=== PATIENT | female | born 1945 | race Caucasian/White ===

== ENCOUNTER → 2016-09-30 | Outpatient (CLI) | payer MEDICARE, OTHER ==
[~2016-09-30] MED LIST: ALEN70SO PO; ASPI81TA85 PO; CALTTAB11 PO; FLUO20CA8 PO; FOSI10TA10 PO; LUTE25CA PO; OMEP20CA3 PO; PRED20TA PO; TIMO5OPG OD; TRAV04OPD OD; TRAZ50TA4 PO; VITA10006 PO; VITATAB74 PO
[2016-09-30 11:23] LABS: BASO % 0.2 % (0.0-1.0); EOS # 0.1 K/mm3 (0.0-0.50); EOS % 1.6 % (0.0-3.0); LARGE UNSTAINED CELL # 0.2 K/mm3 (0.0-0.4); LARGE UNSTAINED CELL % 2.2 % (0.0-4.0); LYMPH # 1.8 K/mm3 (1.5-4.5); LYMPH % 25.6 % (24.0-44.0); MEAN CORPUSCULAR HEMOGLOBIN 30.2 pg (27.0-33.0); MEAN CORPUSCULAR HGB CONC 32.3 g/dl (32.0-36.5); MEAN CORPUSCULAR VOLUME 93.6 fl (80.0-96.0); MONO # 0.5 K/mm3 (0.0-0.8); MONO % 6.9 % (0.0-5.0); NEUTROPHILS # 4.4 K/mm3 (1.8-7.7); NEUTROPHILS % 63.4 % (36.0-66.0); PLATELET COUNT, AUTOMATED 213 k/mm3 (150-450); RED CELL DISTRIBUTION WIDTH 13.3 % (11.5-14.5); WHITE BLOOD COUNT 6.9 K/mm3 (4.0-10.0)
[2016-09-30 11:32] LABS: ALBUMIN 3.7 GM/DL (3.2-5.2); ALBUMIN/GLOBULIN RATIO 1.19 (1.00-1.93); ALKALINE PHOSPHATASE 48 U/L (45-117); ALT/SGPT 20 U/L (12-78); ANION GAP 10 MEQ/L (8-16); AST/SGOT 10 U/L (15-37); BILIRUBIN,TOTAL 0.6 MG/DL (0.2-1.0); BLOOD UREA NITROGEN 15 MG/DL (7-18); CARBON DIOXIDE LEVEL 30 MEQ/L (21-32); CHLORIDE LEVEL 106 MEQ/L (98-107); CREATININE FOR GFR 0.84 MG/DL (0.55-1.02); GLOMERULAR FILTRATION RATE > 60.0 (>39); GLUCOSE, FASTING 89 MG/DL (83-110); POTASSIUM SERUM 4.3 MEQ/L (3.5-5.1); SODIUM LEVEL 146 MEQ/L (136-145); TOTAL PROTEIN 6.8 GM/DL (6.4-8.2)
[2016-10-01 10:46] LABS: ALBUMIN 3.81 GM/DL (3.29-5.55)
== END ==
LOC: M LRY 08:22
PROVIDERS: ATTEND Internal Medicine Medical Oncology
DX: R82.90 Unspecified abnormal findings in urine (principal)

== ENCOUNTER → 2016-10-30 | Outpatient (CLI) | payer MEDICARE, OTHER ==
--- NOTE | 2016-10-30 09:36 | REPMRS ---
Patient History The patient states she has not had a clinical breast exam in over a year. Patient is postmenopausal and has history of other cancer at age 66. No known family history of cancer. Digital Woman Screen Mammo: October 30, 2016 - Exam #: [id number] Bilateral CC and MLO view(s) were taken. Technologist: Ayleen Larsen, Technologist Prior study comparison: October 28, 2015, digital woman screen mammo performed at [facility]. October 09, 2014, digital woman screen mammo performed at [facility]. October 05, 2013, digital woman screen mammo performed at [facility]. FINDINGS: The breast tissue is heterogeneously dense. This may lower the sensitivity of mammography. There is a moderate amount of heterogeneously dense fibroglandular tissue which is fairly symmetric. There is no interval development of dominant mass, architectural distortion, or clustered microcalcification typical of malignancy. There has been no change in the appearance of the mammogram from the prior studies. ASSESSMENT: BI-RADS/ACR category 1 mammogram. Negative. Recommendation Routine screening mammogram of both breasts in 1 year (for women over age 40). This mammogram was interpreted with the aid of an FDA-approved computer-aided dectection system. Electronically Signed By: Munir Daugherty MD 10/30/16 0936
== END ==
LOC: M WHC 09:02
PROVIDERS: ATTEND Family Medicine
DX: Z12.31 Encounter for screening mammogram for malignant neoplasm of breast (principal)

== ENCOUNTER → 2017-02-08 | Outpatient (REF) | payer MEDICARE, OTHER ==
[2017-02-08 17:40] LABS: ANION GAP 9 MEQ/L (8-16); BLOOD UREA NITROGEN 18 MG/DL (7-18); CALCIUM LEVEL 9.2 MG/DL (8.8-10.2); CARBON DIOXIDE LEVEL 31 MEQ/L (21-32); CHLORIDE LEVEL 101 MEQ/L (98-107); CREATININE FOR GFR 0.85 MG/DL (0.55-1.02); GLOMERULAR FILTRATION RATE > 60.0 (>39); GLUCOSE, FASTING 109 MG/DL (83-110); POTASSIUM SERUM 4.4 MEQ/L (3.5-5.1); SODIUM LEVEL 141 MEQ/L (136-145)
== END ==
LOC: M SFHCLERA 14:43
PROVIDERS: ATTEND Family Medicine
DX: Z01.818 Encounter for other preprocedural examination (principal)
CPT/HCPCS: 80048; G0463

== ENCOUNTER → 2017-04-08 | Outpatient (CLI) | payer MEDICARE, OTHER ==
[~2017-04-08] MED LIST changes: -FOSI10TA10 PO; +FOSI10TA2 PO; +TRAZ50TA11 PO; -TRAZ50TA4 PO
[2017-04-08 13:13] LABS: ALBUMIN 3.6 GM/DL (3.2-5.2); ALBUMIN/GLOBULIN RATIO 1.13 (1.00-1.93); ALKALINE PHOSPHATASE 51 U/L (45-117); ALT/SGPT 20 U/L (12-78); ANION GAP 8 MEQ/L (8-16); AST/SGOT 10 U/L (15-37); BILIRUBIN,TOTAL 0.4 MG/DL (0.2-1.0); BLOOD UREA NITROGEN 17 MG/DL (7-18); CALCIUM LEVEL 9.1 MG/DL (8.8-10.2); CARBON DIOXIDE LEVEL 29 MEQ/L (21-32); CHLORIDE LEVEL 105 MEQ/L (98-107); CREATININE FOR GFR 0.87 MG/DL (0.55-1.02); GLOMERULAR FILTRATION RATE > 60.0 (>39); GLUCOSE, FASTING 89 MG/DL (83-110); POTASSIUM SERUM 4.7 MEQ/L (3.5-5.1); SODIUM LEVEL 142 MEQ/L (136-145); TOTAL PROTEIN 6.8 GM/DL (6.4-8.2)
[2017-04-10 00:08] LABS: FREE LAMBDA LIGHT CHAINS SERUM 15.4 mg/L (5.7-26.3); KAPPA/LAMBDA RATIO SERUM 1.1 (0.26-1.65)
[2017-04-12 12:45] LABS: ALBUMIN 3.92 GM/DL (3.29-5.55); ALBUMIN % 57.6 % (55.8-66.1); GAMMA GLOBULIN % 10.7 % (11.1-18.8)
== END ==
LOC: M LRY 08:14
PROVIDERS: ATTEND Internal Medicine Medical Oncology
DX: R79.89 Other specified abnormal findings of blood chemistry (principal)

== ENCOUNTER 2017-08-18 16:07 | Emergency (ER) | payer MEDICARE, OTHER ==
[~2017-08-18] VITALS: Ht 157.5 cm; Wt 79.5 kg
[2017-08-18] MEDS ORDERED: COMB0.2S OU (16:27)
[2017-08-18] MEDS ORDERED: PRED5TA PO (16:27)
--- NOTE | 2017-08-18 17:45 | REP ---
Clinical: Trauma . Findings: Age-related atrophy and microvascular ischemic changes are appreciated. The ventricles and sulci are symmetric. Harrington-white differentiation is maintained. There is no evidence for acute intracranial hemorrhage, mass/mass effect, pathology or infarction. No extra-axial fluid collection. Calvarium is intact. Paranasal sinuses and mastoid air cells are clear. Small foreign body material in the scalp overlying the frontal and temporal lobes of uncertain chronicity. Impression: Age related atrophy and microvascular ischemic changes. No acute intracranial hemorrhage, infarction, or mass/mass effect. Small metallic foreign body material in the scalp soft tissue overlying the bilateral temporal and frontal lobes. Signed by Wong Rome MD 08/18/2017 05:36 P
--- NOTE | 2017-08-18 17:50 | REP ---
Clinical: Trauma. Technique: AP, lateral, bilateral oblique views of the right elbow. Findings: Mild age-related arthritic changes are appreciated. No acute fracture or dislocation. No effusion. No swelling. No foreign body. Impression: Age-appropriate right elbow radiographs. No acute fracture dislocation. Signed by Wong Rome MD 08/18/2017 05:41 P
--- NOTE | 2017-08-18 18:03 | REP ---
Clinical: Trauma. Technique: AP, lateral, bilateral oblique views of the left wrist. Findings: Advanced arthritic degenerative changes primarily involving the first and second carpometacarpal joints including subchondral sclerosis/heterogeneity, joint space narrowing, osteophyte formation and partially calcified adjacent loose bodies. Moderate degenerative changes are also appreciated throughout the remainder of the wrist consistent with the patient's age. No acute fracture dislocation. Impression: Degenerative changes. No acute fracture or dislocation. Signed by Wong Rome MD 08/18/2017 05:55 P
--- NOTE | 2017-08-18 18:05 | REP ---
Clinical: Trauma. Technique: AP, lateral, bilateral oblique and coned-down views of the lumbosacral spine. Findings: Moderate to advanced degenerative changes at the L3-4 through L5-S1 levels includes endplate sclerosis, disc space narrowing, and hypertrophic facet changes. There is 5 mm of anterolisthesis at the L4-5 level which appears chronic based on hypertrophic facet changes. No acute fracture / compression injury or subluxation. Impression: Moderate to advanced degenerative disc osteophyte complexes at L3-4 through L5-S1. No acute fracture / compression injury. Signed by Wong Rome MD 08/18/2017 05:57 P
--- NOTE | 2017-08-18 18:06 | REP ---
Clinical: Trauma. Technique: AP, lateral, swimmers views of the thoracic spine. Findings: Moderate age-related degenerative changes are appreciated including anterior spurring and endplate sclerosis with disc space narrowing. No acute fracture / compression injury or subluxation. Alignment and kyphosis maintained. Impression: Moderate osteopenia and multilevel degenerative changes. No acute fracture / compression injury or subluxation. Signed by Wong Rome MD 08/18/2017 05:57 P
[2017-08-18 18:14] VITALS: BP 131/67
--- NOTE | 2017-08-19 07:25 | ED PDOC ---
Post-Departure Follow-Up radiology report faxed to Marisol Ferguson MD Aug 19, 2017 07:25
== END 2017-08-18 18:23 | disposition home or self-care (01) ==
LOC: M ED 16:07
DX: S06.0X0A Concussion without loss of consciousness, initial encounter (principal); S20.229A Contusion of unspecified back wall of thorax, initial encounter; S30.0XXA Contusion of lower back and pelvis, initial encounter; S50.01XA Contusion of right elbow, initial encounter; S00.93XA Contusion of unspecified part of head, initial encounter; W10.9XXA Fall (on) (from) unspecified stairs and steps, initial encounter; Y92.099 Unspecified place in other non-institutional residence as the place of occurrence of the external cause; Y93.9 Activity, unspecified; Y99.9 Unspecified external cause status; M25.78 Osteophyte, vertebrae; M85.88 Other specified disorders of bone density and structure, other site; M79.7 Fibromyalgia; I10 Essential (primary) hypertension; K21.9 Gastro-esophageal reflux disease without esophagitis; Z79.82 Long term (current) use of aspirin; Z79.899 Other long term (current) drug therapy; Z88.8 Allergy status to other drugs, medicaments and biological substances; Z88.0 Allergy status to penicillin

== ENCOUNTER → 2017-10-13 | Outpatient (REF) | payer MEDICARE, OTHER ==
[2017-10-13 13:57] LABS: HEMATOCRIT 37.6 % (36.0-47.0); MEAN CORPUSCULAR HEMOGLOBIN 29.5 pg (27.0-33.0); MEAN CORPUSCULAR HGB CONC 31.9 g/dl (32.0-36.5); MEAN CORPUSCULAR VOLUME 92.4 fl (80.0-96.0); PLATELET COUNT, AUTOMATED 226 10^3/uL (150-450); RED BLOOD COUNT 4.07 10^6/uL (4.00-5.40); RED CELL DISTRIBUTION WIDTH 14.1 % (11.5-14.5); WHITE BLOOD COUNT 7.7 10^3/uL (4.0-10.0)
[2017-10-13 14:34] LABS: ALBUMIN 3.7 GM/DL (3.2-5.2); ALBUMIN/GLOBULIN RATIO 1.12 (1.00-1.93); ALKALINE PHOSPHATASE 52 U/L (45-117); ALT/SGPT 18 U/L (12-78); ANION GAP 5 MEQ/L (8-16); AST/SGOT 11 U/L (7-37); BILIRUBIN,TOTAL 0.5 MG/DL (0.2-1.0); BLOOD UREA NITROGEN 14 MG/DL (7-18); C REACTIVE PROTEIN QUANTITATIV 1.91 MG/DL (0.00-0.30); CALCIUM LEVEL 8.9 MG/DL (8.8-10.2); CARBON DIOXIDE LEVEL 31 MEQ/L (21-32); CHLORIDE LEVEL 105 MEQ/L (98-107); CHOLESTEROL LEVEL 197 MG/DL (<200); CHOLESTEROL RISK RATIO 5.794 (<5); CREATININE FOR GFR 0.81 MG/DL (0.55-1.02); GLOMERULAR FILTRATION RATE > 60.0 (>39); GLUCOSE, FASTING 94 MG/DL (70-100); HDL CHOLESTEROL 34 MG/DL (>40); LDL CHOLESTEROL 123.8 MG/DL (<100); NON-HDL-C 163 MG/DL; POTASSIUM SERUM 4.2 MEQ/L (3.5-5.1); SODIUM LEVEL 141 MEQ/L (136-145); TRIGLYCERIDES LEVEL 196 MG/DL (<150)
[2017-10-13 14:51] LABS: MALB URINE SIEMENS 55.9 MG/L; MAU/CREAT RATIO 25.5 MCG/MG (0.0-30.0)
[2017-10-13 15:10] LABS: ESTIMATED AVERAGE GLUCOSE 105 MG/DL (60-110); HEMOGLOBIN A1c 5.3 %
[2017-10-13 16:07] LABS: ERYTHROCYTE SEDIMENTATION RATE 60 mm/hr (0-30)
== END ==
LOC: M SFHCLERA 08:16
DX: M31.6 Other giant cell arteritis (principal); I10 Essential (primary) hypertension; R35.0 Frequency of micturition; Z79.899 Other long term (current) drug therapy
CPT/HCPCS: 84443

== ENCOUNTER → 2017-11-01 | Outpatient (CLI) | payer MEDICARE, OTHER | LOC: M WHC 09:28 | DX: Z12.31 Encounter for screening mammogram for malignant neoplasm of breast (principal) | CPT/HCPCS: 77067 ==

== ENCOUNTER → 2018-01-20 | Outpatient (REF) | payer MEDICARE, OTHER ==
[2018-01-20 11:33] LABS: HEMATOCRIT 40.5 % (36.0-47.0); HEMOGLOBIN 12.7 g/dl (12.0-15.5); MEAN CORPUSCULAR HGB CONC 31.4 g/dl (32.0-36.5); MEAN CORPUSCULAR VOLUME 95.7 fl (80.0-96.0); PLATELET COUNT, AUTOMATED 221 10^3/uL (150-450); RED BLOOD COUNT 4.23 10^6/uL (4.00-5.40); RED CELL DISTRIBUTION WIDTH 14.6 % (11.5-14.5)
[2018-01-20 12:00] LABS: ALBUMIN 3.7 GM/DL (3.2-5.2); ALKALINE PHOSPHATASE 49 U/L (45-117); ALT/SGPT 27 U/L (12-78); ANION GAP 6 MEQ/L (8-16); AST/SGOT 16 U/L (7-37); BILIRUBIN,TOTAL 0.5 MG/DL (0.2-1.0); BLOOD UREA NITROGEN 17 MG/DL (7-18); CARBON DIOXIDE LEVEL 29 MEQ/L (21-32); CHLORIDE LEVEL 106 MEQ/L (98-107); CREATININE FOR GFR 0.82 MG/DL (0.55-1.30); GLOMERULAR FILTRATION RATE > 60.0 (>39); GLUCOSE, FASTING 92 MG/DL (70-100); POTASSIUM SERUM 4.6 MEQ/L (3.5-5.1); SODIUM LEVEL 141 MEQ/L (136-145); TOTAL PROTEIN 7.4 GM/DL (6.4-8.2)
[2018-01-20 12:22] LABS: ERYTHROCYTE SEDIMENTATION RATE 30 mm/hr (0-30)
== END ==
LOC: M SFHCLERA 08:30
DX: M31.6 Other giant cell arteritis (principal)
CPT/HCPCS: 80053

== ENCOUNTER → 2018-01-25 | Outpatient (CLI) | payer MEDICARE, OTHER | LOC: M WHC 08:35 | DX: R10.2 Pelvic and perineal pain (principal) | CPT/HCPCS: 76857 ==

== ENCOUNTER → 2018-04-14 | Outpatient (CLI) | payer MEDICARE, OTHER | LOC: M WHC 10:02 | DX: Z79.52 Long term (current) use of systemic steroids (principal) | CPT/HCPCS: 77080 ==

== ENCOUNTER 2018-04-18 09:47 | Outpatient (RCR) | payer MEDICARE, OTHER | END 2018-04-19 | disposition home or self-care (01) | LOC: M PT 09:47 | DX: Z51.89 Encounter for other specified aftercare (principal); R26.81 Unsteadiness on feet | CPT/HCPCS: 97110 ==

== ENCOUNTER 2018-04-26 08:37 | Outpatient (RCR) | payer MEDICARE, OTHER | END 2018-05-20 | LOC: M PT 08:37 | DX: R26.81 Unsteadiness on feet (principal); Z51.89 Encounter for other specified aftercare (principal) | CPT/HCPCS: 97110 ==

== ENCOUNTER 2018-05-26 07:51 | Outpatient (RCR) | payer MEDICARE, OTHER | END 2018-06-19 | LOC: M PT 07:51 | DX: Z51.89 Encounter for other specified aftercare (principal); R26.81 Unsteadiness on feet | CPT/HCPCS: 97110 ==

== ENCOUNTER → 2019-02-08 | Outpatient (REF) | payer MEDICARE, OTHER ==
[~2019-02-08] MED LIST changes: +COMB0.2S OU; +PRED5TA PO; +TIMO0.5S7 OD; -TIMO5OPG OD; +TRAZ-252 PO; -TRAZ50TA11 PO
[2019-02-08 12:09] LABS: CHOLESTEROL RISK RATIO 5.47 (<5); THYROID STIMULATING HORMONE 1.66 uIU/ML (0.358-3.740)
[2019-02-08 12:19] LABS: BLOOD UREA NITROGEN 21 MG/DL (7-18); CALCIUM LEVEL 8.9 MG/DL (8.8-10.2); CARBON DIOXIDE LEVEL 30 MEQ/L (21-32); CHLORIDE LEVEL 105 MEQ/L (98-107); CREATININE FOR GFR 0.83 MG/DL (0.55-1.30); GLOMERULAR FILTRATION RATE > 60.0 (>39); GLUCOSE, FASTING 94 MG/DL (70-100); POTASSIUM SERUM 4.2 MEQ/L (3.5-5.1); SODIUM LEVEL 142 MEQ/L (136-145)
[2019-02-08 14:17] LABS: HEMOGLOBIN A1c 4.9 %
== END ==
LOC: M SFHCLERA 09:39
PROVIDERS: ATTEND Family Medicine
DX: I10 Essential (primary) hypertension (principal)
CPT/HCPCS: 80048; 80061; 83036; 84443; G0463

== ENCOUNTER → 2019-02-15 | Outpatient (CLI) | payer MEDICARE, OTHER ==
--- NOTE | 2019-02-15 12:58 | REPMRS ---
Patient History The patient states she has not had a clinical breast exam in over a year. No known family history of cancer. 3D TOMOSYNTHESIS WAS PERFORMED. Digital Woman Screen Mammo: February 15, 2019 - Exam #: [id number] Bilateral CC and MLO view(s) were taken. Technologist: Robina Strange Technologist Prior study comparison: November 01, 2017, digital woman screen mammo performed at [facility]. October 30, 2016, digital woman screen mammo performed at [facility]. FINDINGS: The breast tissue is heterogeneously dense. This may lower the sensitivity of mammography. There has been no change in the appearance of the mammogram from the prior studies. There is a moderate amount of residual fibroglandular tissue which is fairly symmetric. There is no interval development of dominant mass, areas of architectural distortion, or clustered microcalcification typical of malignancy. Assessment: BI-RADS/ACR category 1 mammogram. Negative Mammogram. Recommendation Routine screening mammogram in 1 year (for women over age 40). This mammogram was interpreted with the aid of an FDA-approved computer-aided dectection system. Electronically Signed By: David Harrington MD 02/15/19 [id number]
== END ==
LOC: M WHC 11:40
PROVIDERS: ATTEND Family Medicine
DX: Z12.31 Encounter for screening mammogram for malignant neoplasm of breast (principal)
CPT/HCPCS: 77063; 77067; G0463

== ENCOUNTER → 2019-04-18 | Outpatient (REF) | payer MEDICARE, OTHER ==
[~2019-04-18] MED LIST changes: -OMEP20CA3 PO; +OMEP20CA4 PO
[2019-04-18 13:00] LABS: BASO % 0.5 % (0.0-1.0); EOS # 0.1 10^3/uL (0.0-0.50); HEMATOCRIT 37.2 % (36.0-47.0); HEMOGLOBIN 11.9 g/dl (12.0-15.5); LYMPH # 1.4 10^3/uL (1.5-4.5); LYMPH % 23.2 % (24.0-44.0); MEAN CORPUSCULAR HEMOGLOBIN 32.4 pg (27.0-33.0); MEAN CORPUSCULAR VOLUME 101.4 fl (80.0-96.0); MONO # 0.6 10^3/uL (0.0-0.8); MONO % 9.2 % (0.0-5.0); NEUTROPHILS # 3.9 10^3/uL (1.8-7.7); NEUTROPHILS % 64.8 % (36.0-66.0); PLATELET COUNT, AUTOMATED 222 10^3/uL (150-450); RED BLOOD COUNT 3.67 10^6/uL (4.00-5.40)
[2019-04-18 13:20] LABS: BLOOD UREA NITROGEN 14 MG/DL (7-18); CALCIUM LEVEL 9.3 MG/DL (8.8-10.2); CARBON DIOXIDE LEVEL 32 MEQ/L (21-32); CHLORIDE LEVEL 105 MEQ/L (98-107); CREATININE FOR GFR 0.82 MG/DL (0.55-1.30); GLOMERULAR FILTRATION RATE > 60.0 (>39); GLUCOSE, FASTING 90 MG/DL (70-100); POTASSIUM SERUM 4.3 MEQ/L (3.5-5.1); SODIUM LEVEL 143 MEQ/L (136-145)
== END ==
LOC: M SFHCLERA 10:44
PROVIDERS: ATTEND Family Medicine
DX: Z01.818 Encounter for other preprocedural examination (principal)
CPT/HCPCS: 80048; 85025; G0463

== ENCOUNTER → 2019-04-27 | Outpatient (REF) | payer MEDICARE, OTHER | LOC: M LAB REF 10:20 | PROVIDERS: ATTEND Orthopaedic Surgery | DX: M67.48 Ganglion, other site (principal) ==

== ENCOUNTER → 2019-06-14 | Outpatient (REF) | payer MEDICARE, OTHER ==
[~2019-06-14] MED LIST changes: -FOSI10TA2 PO; +FOSI10TA4 PO
[2019-06-14 12:40] LABS: BASO % 0.4 % (0.0-1.0); EOS # 0.1 10^3/uL (0.0-0.5); HEMATOCRIT 42.7 % (36.0-47.0); HEMOGLOBIN 13.7 g/dl (12.0-15.5); LYMPH # 1.4 10^3/uL (1.5-5.0); LYMPH % 15.4 % (24.0-44.0); MEAN CORPUSCULAR HEMOGLOBIN 31.1 pg (27.0-33.0); MEAN CORPUSCULAR HGB CONC 32.1 g/dl (32.0-36.5); MONO # 0.8 10^3/uL (0.0-0.8); NEUTROPHILS # 6.9 10^3/uL (1.5-8.5); NEUTROPHILS % 73.8 % (36.0-66.0); PLATELET COUNT, AUTOMATED 257 10^3/uL (150-450); WHITE BLOOD COUNT 9.3 10^3/uL (4.0-10.0)
[2019-06-14 13:02] LABS: BILIRUBIN,TOTAL 0.7 MG/DL (0.2-1.0); CALCIUM LEVEL 9.5 MG/DL (8.8-10.2); GLOMERULAR FILTRATION RATE 57.5 (>39); POTASSIUM SERUM 4.4 MEQ/L (3.5-5.1); THYROID STIMULATING HORMONE 2.77 uIU/ML (0.358-3.740); TOTAL PROTEIN 7.5 GM/DL (6.4-8.2)
== END ==
LOC: M SFHCLERA 08:50
PROVIDERS: ATTEND Family Medicine
DX: R11.0 Nausea (principal); R63.0 Anorexia
CPT/HCPCS: 80053; 83690; 84443; 85025; 87086; 93005; G0463

== ENCOUNTER → 2020-02-20 | Outpatient (CLI) | payer MEDICARE, OTHER, BC ==
[~2020-02-20] MED LIST changes: +FLUO20CA20 PO; -FLUO20CA8 PO; +OMEP1CAP73 PO; -OMEP20CA4 PO
--- NOTE | 2020-02-20 09:38 | REPMRS ---
Patient History The patient states she had a clinical breast exam in January 2020. No known family history of cancer. 3D TOMOSYNTHESIS WAS PERFORMED. [facility] lifetime risk for breast cancer is 3.1%. VOLPARA DENSITY B. Digital Woman Screen Mammo: February 20, 2020 - Exam #: [id number] Bilateral CC and MLO view(s) were taken. Technologist: Johanna Masters, Technologist Prior study comparison: February 15, 2019, bilateral digital woman screen mammo performed at [facility]. November 01, 2017, digital woman screen mammo performed at [facility]. FINDINGS: The breast tissue is heterogeneously dense. This may lower the sensitivity of mammography. There has been no change in the appearance of the mammogram from the prior studies. There is a moderate amount of residual fibroglandular tissue which is fairly symmetric. There is no interval development of dominant mass, areas of architectural distortion, or clustered microcalcification typical of malignancy. Assessment: BI-RADS/ACR category 1 mammogram. Negative Mammogram. Recommendation Routine screening mammogram in 1 year (for women over age 40). This mammogram was interpreted with the aid of an FDA-approved computer-aided dectection system. Electronically Signed By: David Harrington MD 02/20/20 0937
== END ==
LOC: M WHC 08:18
PROVIDERS: ATTEND Nurse Practitioner Family
DX: Z12.31 Encounter for screening mammogram for malignant neoplasm of breast (principal)

== ENCOUNTER → 2020-02-29 | Outpatient (CLI) | payer MEDICARE, OTHER, BC ==
[2020-02-29 12:12] LABS: BASO % 0.3 % (0.0-1.0); EOS # 0.1 10^3/uL (0.0-0.5); EOS % 2.3 % (0.0-3.0); HEMATOCRIT 35.9 % (36.0-47.0); HEMOGLOBIN 11.4 g/dl (12.0-15.5); LYMPH # 1.2 10^3/uL (1.5-5.0); LYMPH % 20.5 % (24.0-44.0); MEAN CORPUSCULAR HEMOGLOBIN 30.6 pg (27.0-33.0); MEAN CORPUSCULAR HGB CONC 31.8 g/dl (32.0-36.5); MEAN CORPUSCULAR VOLUME 96.5 fl (80.0-96.0); MONO # 0.5 10^3/uL (0.0-0.8); MONO % 8.2 % (0.0-5.0); NEUTROPHILS # 4.1 10^3/uL (1.5-8.5); NEUTROPHILS % 68.4 % (36.0-66.0); PLATELET COUNT, AUTOMATED 237 10^3/uL (150-450); RED BLOOD COUNT 3.72 10^6/uL (4.00-5.40)
[2020-02-29 12:38] LABS: ALT/SGPT 37 U/L (12-78); C REACTIVE PROTEIN QUANTITATIV 1.45 MG/DL (0.00-0.30); GLOMERULAR FILTRATION RATE > 60.0 (>39)
[2020-02-29 12:41] LABS: ERYTHROCYTE SEDIMENTATION RATE 58 mm/hr (0-30)
== END ==
LOC: M PLALAB 08:22
PROVIDERS: ATTEND Internal Medicine
DX: Z51.81 Encounter for therapeutic drug level monitoring (principal); Z79.899 Other long term (current) drug therapy

== ENCOUNTER → 2020-04-04 | Outpatient (REF) | payer MEDICARE, OTHER, BC ==
[2020-04-04 16:00] LABS: APPEARANCE, URINE HAZY (CLEAR); BACTERIA, URINE AUTO NEGATIVE (NEGATIVE); BILIRUBIN, URINE AUTO NEGATIVE (NEGATIVE); BLOOD, URINE BLOOD NEGATIVE (NEGATIVE); COLOR, URINE YELLOW (YELLOW); GLUCOSE, URINE (UA) AUTO NEGATIVE (NEGATIVE); KETONE, URINE AUTO NEGATIVE (NEGATIVE); LEUKOCYTE ESTERASE, URINE AUTO 3+ (NEGATIVE); MUCUS, URINE SMALL (NEGATIVE); NITRITE, URINE AUTO NEGATIVE (NEGATIVE); PROTEIN, URINE AUTO NEGATIVE (NEGATIVE); RBC, URINE AUTO 1 /HPF (0-3); SPECIFIC GRAVITY URINE AUTO 1.019 (1.002-1.035); SQUAMOUS EPITHELIAL CELL UR AU 3 /HPF (0-6); UROBILINOGEN, URINE AUTO 0.2 mg/dL (0.0-2.0); WBC, URINE AUTO 4 /HPF (0-3)
[2020-04-04 16:02] LABS: BASO % 0.4 % (0.0-1.0); EOS # 0.1 10^3/uL (0.0-0.5); EOS % 1.4 % (0.0-3.0); HEMATOCRIT 37.7 % (36.0-47.0); LYMPH # 1.7 10^3/uL (1.5-5.0); LYMPH % 20.1 % (24.0-44.0); MEAN CORPUSCULAR HEMOGLOBIN 30.6 pg (27.0-33.0); MEAN CORPUSCULAR HGB CONC 31.8 g/dl (32.0-36.5); MEAN CORPUSCULAR VOLUME 96.2 fl (80.0-96.0); MONO # 0.9 10^3/uL (0.0-0.8); MONO % 10.4 % (0.0-5.0); NEUTROPHILS # 5.7 10^3/uL (1.5-8.5); NEUTROPHILS % 67.2 % (36.0-66.0); PLATELET COUNT, AUTOMATED 258 10^3/uL (150-450); RED BLOOD COUNT 3.92 10^6/uL (4.00-5.40); WHITE BLOOD COUNT 8.5 10^3/uL (4.0-10.0)
[2020-04-04 16:12] LABS: ALBUMIN 3.7 GM/DL (3.2-5.2); ALT/SGPT 34 U/L (12-78); BILIRUBIN,TOTAL 0.5 MG/DL (0.2-1.0); BLOOD UREA NITROGEN 15 MG/DL (7-18); C REACTIVE PROTEIN QUANTITATIV 1.92 MG/DL (0.00-0.30); CALCIUM LEVEL 10.5 MG/DL (8.8-10.2); CARBON DIOXIDE LEVEL 29 MEQ/L (21-32); CHLORIDE LEVEL 102 MEQ/L (98-107); CREATININE FOR GFR 0.89 MG/DL (0.55-1.30); GLOMERULAR FILTRATION RATE > 60.0 (>39); GLUCOSE, FASTING 86 MG/DL (70-100); LIPASE 236 U/L (73-393); POTASSIUM SERUM 4.5 MEQ/L (3.5-5.1); SODIUM LEVEL 140 MEQ/L (136-145); TOTAL PROTEIN 7.4 GM/DL (6.4-8.2)
[2020-04-04 16:49] LABS: ERYTHROCYTE SEDIMENTATION RATE 70 mm/hr (0-30)
== END ==
LOC: M SFHCLERA 12:13
PROVIDERS: ATTEND Family Medicine
DX: R10.9 Unspecified abdominal pain (principal)

== ENCOUNTER → 2020-04-24 | Outpatient (REF) | payer MEDICARE, OTHER, BC ==
[~2020-04-24] MED LIST changes: +ALEN70TA74; -ASPI81TA85 PO; +ASPI81TA86 PO; +CALTCHW5 PO; +CVS500CA5 PO; +FLUO40CA; +FOLI1TAB11; +META0.52 PO; +METH2.5T48; +OMEP-221; +PRED1TABL
== END ==
LOC: M SFHCWAGY 10:34
PROVIDERS: ATTEND Nurse Practitioner Family
DX: N39.0 Urinary tract infection, site not specified (principal)

== ENCOUNTER → 2020-06-21 | Outpatient (CLI) | payer MEDICARE, OTHER, BC ==
[~2020-06-21] MED LIST changes: -ALEN70TA74; -CALTCHW5 PO; -CVS500CA5 PO; -FLUO40CA; -FOLI1TAB11; -META0.52 PO; -METH2.5T48; -OMEP-221; -PRED1TABL
--- NOTE | 2020-06-25 15:51 | DEXA ---
AP SPINE L1 - L4 1.578 3.1 4.9 LT FEMUR TOTAL 1.139 1.0 2.9 LT NECK 1.024 -0.1 1.9 RT FEMUR TOTAL 1.135 1.0 2.8 RT NECK 1.068 0.2 2.2 TOTAL BODY TOTAL OTHER COMMENTS: Normal bone densitometry of the spine and hips. The increased density of the spine does represent significant change. The increased density of the left hip does represent a significant change. The increased density of the right hip does not represent a significant change. The density of the spine has increased 7.2% since the initial exam on 08/02/2015. The increased 4.9% since the most recent exam on 04/14/2018. The density of the left hip has increased 7.9% since the initial exam on 08/02/2015. The density of the left hip has increased 2.7% since the most recent exam on 04/14/2018. The density of the right hip has increased 5.5% since the initial exam on 08/02/2015. The density of the right hip has increased 0.3% since the most recent exam on 04/14/2018. FOLLOW-UP: Recommendation for the next bone density exam: 5 years. HESHAMD
== END ==
LOC: M WHC 08:52
PROVIDERS: ATTEND Internal Medicine
DX: Z51.81 Encounter for therapeutic drug level monitoring (principal); Z79.52 Long term (current) use of systemic steroids

== ENCOUNTER → 2020-07-27 | Outpatient (CLI) | payer MEDICARE, OTHER, BC ==
[~2020-07-27] MED LIST changes: +ALEN70TA74; +CALTCHW5 PO; +CVS500CA5 PO; +FLUO40CA; +FOLI1TAB11; +META0.52 PO; +METH2.5T48; +OMEP-221; +PRED1TABL
== END ==
LOC: M LABSMTC 08:55
PROVIDERS: ATTEND Anesthesiology
DX: Z01.812 Encounter for preprocedural laboratory examination (principal); Z20.828 Contact with and (suspected) exposure to other viral communicable diseases
CPT/HCPCS: C9803; U0003

== ENCOUNTER 2020-08-01 11:05 | Day surgery (SDC) | payer MEDICARE, OTHER, BC ==
[~2020-08-01] VITALS: Ht 154.9 cm; Wt 77.6 kg
[~2020-08-01 11:05] MED LIST changes: +NS 1,000 ML IV ONE
[2020-08-01] MEDS ORDERED: LIDOCAINE 2% 100MG/5ML SDV (FOR ANES.) As Ordered ONE (13:12)
[2020-08-01] MEDS ORDERED: propofoL 200 MG/20 ML VIAL As Ordered ONE (13:12)
--- NOTE | 2020-08-01 13:51 | ROOR ---
Patient Name: Radha Araujo Procedure Date: 08/01/2020 1:39 PM Date of : 1945 Age: 74 Room: [facility] Gender: Female Note Status: Finalized Procedure: Upper GI endoscopy Indications: Heartburn Providers: Lonny WHITE MD Referring MD: Chase Bales DO Requestshefali Provider: Medicines: Monitored Anesthesia Care Complications: No immediate complications. Procedure: Pre-Anesthesia Assessment: - The heart rate, respiratory rate, oxygen saturations, blood pressure, adequacy of pulmonary ventilation, and response to care were monitored throughout the procedure. The Endoscope was introduced through the mouth, and advanced to the second part of duodenum. The upper GI endoscopy was accomplished without difficulty. The patient tolerated the procedure well. Findings: The esophagus was normal. The stomach was normal. (large volume) The examined duodenum was normal. Impression: - Normal esophagus. - Normal stomach. - Normal examined duodenum. - No specimens collected. Recommendation: - Continue present medications. - Observe patient's clinical course. - Follow an antireflux regimen. Lonny White MD Lonny WHITE MD 08/01/2020 1:50:50 PM Electronically signed by Lonny WHITE MD Number of Addenda: 0 Note Initiated On: 08/01/2020 1:39 PM Estimated Blood Loss: Estimated blood loss: none.
--- NOTE | 2020-08-01 14:14 | ROOR ---
Patient Name: Radha Araujo Procedure Date: 08/01/2020 1:40 PM Date of : 1945 Age: 74 Room: [facility] Gender: Female Note Status: Finalized Procedure: Colonoscopy Indications: Hematochezia Providers: Lonny WHITE MD Referring MD: Chase Bales DO Requesting Provider: Medicines: Monitored Anesthesia Care Complications: No immediate complications. Procedure: Pre-Anesthesia Assessment: - The heart rate, respiratory rate, oxygen saturations, blood pressure, adequacy of pulmonary ventilation, and response to care were monitored throughout the procedure. The Colonoscope was introduced through the anus and advanced to the terminal ileum, with identification of the appendiceal orifice and IC valve. The colonoscopy was performed without difficulty. The patient tolerated the procedure well. The quality of the bowel preparation was good. Findings: Hemorrhoids were found on perianal exam. External and internal hemorrhoids were found during retroflexion. The hemorrhoids were medium-sized. A 5 mm polyp was found in the sigmoid colon. The polyp was sessile. The polyp was removed with a cold snare. Resection and retrieval were complete. A few medium-mouthed diverticula were found in the sigmoid colon. The exam was otherwise without abnormality on direct and retroflexion views. Impression: - Skin tags and nonthrombosed external hemorrhoids found on perianal exam. - Small Internal hemorrhoids. - One 5 mm polyp in the sigmoid colon, removed with a cold snare. Resected and retrieved. - Diverticulosis in the sigmoid colon. - The examination was otherwise normal on direct and retroflexion views. Recommendation: - (-I do not see any definite evidence of rectal prolapse on this exam, I suspect the "protrusion" is more likely related to Hemorrhoids. I would recommend observation -- using daily fiber supplement and add miralax daily dose, to reduce straining. For continued issues, please let me know) - Miralax 1 capful (17 grams) in 8 ounces of water PO daily indefinitely. - Use A fiber supplement, such as FiberCon 2 tablets PO BID indefinitely. Lonny White MD Lonny WHITE MD 08/01/2020 2:14:26 PM Electronically signed by Lonny WHITE MD Number of Addenda: 0 Note Initiated On: 08/01/2020 1:40 PM Estimated Blood Loss: Estimated blood loss: none.
[2020-08-01 14:41] VITALS: BP 121/58
== END 2020-08-01 14:50 | disposition home or self-care (01) ==
LOC: M OPP 11:05
PROVIDERS: ATTEND Internal Medicine Gastroenterology
DX: K63.5 Polyp of colon (principal); K57.30 Diverticulosis of large intestine without perforation or abscess without bleeding; K64.8 Other hemorrhoids; M31.5 Giant cell arteritis with polymyalgia rheumatica; G47.30 Sleep apnea, unspecified; Z79.899 Other long term (current) drug therapy; Z88.0 Allergy status to penicillin; Z88.2 Allergy status to sulfonamides; Z88.8 Allergy status to other drugs, medicaments and biological substances; Z92.21 Personal history of antineoplastic chemotherapy

== ENCOUNTER → 2020-11-19 | Outpatient (CLI) | payer MEDICARE, OTHER, BC ==
[~2020-11-19] MED LIST changes: -ALEN70TA74; +ALEN70TA82; -NS 1,000 ML IV ONE
--- NOTE | 2020-11-19 16:57 | REPVR ---
PROCEDURE INFORMATION: Exam: CT Head Without Contrast Exam date and time: 11/19/2020 4:35 PM Age: 75 years old Clinical indication: Pain; Headache; Additional info: Headaches TECHNIQUE: Imaging protocol: Computed tomography of the head without contrast. Radiation optimization: All CT scans at this facility use at least one of these dose optimization techniques: automated exposure control; mA and/or kV adjustment per patient size (includes targeted exams where dose is matched to clinical indication); or iterative reconstruction. COMPARISON: CT Head without contrast 08/18/2017 5:19 PM FINDINGS: Brain: No acute intracerebral abnormality or injury. No acute infarct or intracerebral bleed. 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 No significant interval change since the previous head CT from 08/18/2017. [place] Stroke Program Early CT Score (ASPECTS score) = 10. Cerebral ventricles: No ventriculomegaly. Bones/joints: Unremarkable. No acute fracture. Paranasal sinuses: Visualized sinuses are unremarkable. No fluid levels. Mastoid air cells: Visualized mastoid air cells are well aerated. Soft tissues: Unremarkable. IMPRESSION: 1. No acute intracerebral abnormality or injury. No acute infarct or intracerebral bleed. 2. 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 No significant interval change since the previous head CT from 08/18/2017. 3. [place] Stroke Program Early CT Score (ASPECTS score) = 10. Electronically signed by: Kemar Dickey On 11/19/2020 16:57:16 PM
== END ==
LOC: M RAD 16:19
PROVIDERS: ATTEND Family Medicine
DX: R51.9 Headache, unspecified (principal)

== ENCOUNTER → 2021-02-26 | Outpatient (CLI) | payer MEDICARE, OTHER, BC ==
--- NOTE | 2021-02-26 13:41 | REPMRS ---
Patient History The patient states she had a clinical breast exam in January 2021. No known family history of cancer. Tomosynthesis is performed. Volpara breast density is b. Tyrer-Cuzick lifetime risk of breast cancer 2.8%. No breast complaints today, pt states occasional right breast tenderness, provider aware. No tenderness today. Pfizer vaccines 11/2020 both in the patients left arm. Pt unable to remember exact dates and doesn't have vaccine card with her. Patient has signed MRS History Sheet. Digital Woman Screen Mammo: February 26, 2021 - Exam #: [id number] Bilateral CC and MLO view(s) were taken. Technologist: Mary Nelson, Prior study comparison: February 20, 2020, bilateral digital woman screen mammo performed at [facility]. February 15, 2019, bilateral digital woman screen mammo performed at [facility]. FINDINGS: The breast tissue is heterogeneously dense. This may lower the sensitivity of mammography. There has been no change in the appearance of the mammogram from the prior studies. There is a moderate amount of residual fibroglandular tissue which is fairly symmetric. There is no interval development of dominant mass, areas of architectural distortion, or clustered microcalcification typical of malignancy. Assessment: BI-RADS/ACR category 1 mammogram. Negative Mammogram. Recommendation Routine screening mammogram in 1 year (for women over age 40). This mammogram was interpreted with the aid of an FDA-approved computer-aided dectection system. Electronically Signed By: David Harrington MD 02/26/21 [id number]
== END ==
LOC: M WHC 12:47
PROVIDERS: ATTEND Family Medicine
DX: Z12.31 Encounter for screening mammogram for malignant neoplasm of breast (principal)

== ENCOUNTER → 2022-02-06 | Outpatient (CLI) | payer MEDICARE, OTHER, BC ==
[~2022-02-06] MED LIST changes: -ALEN70SO PO; +ALEN70SO2 PO; +FLUO-96 PO; -FLUO20CA20 PO; -FOSI10TA4 PO; +FOSI10TA44 PO; -OMEP-221; +OMEP40CA5
== END ==
LOC: M PLAIMG 10:32
PROVIDERS: ATTEND Family Medicine
DX: M54.6 Pain in thoracic spine (principal)

== ENCOUNTER → 2022-02-27 | Outpatient (CLI) | payer MEDICARE, OTHER, BC | LOC: M WHC 08:28 | PROVIDERS: ATTEND Advanced Practice Midwife | DX: Z12.31 Encounter for screening mammogram for malignant neoplasm of breast (principal) ==

== ENCOUNTER → 2022-02-27 | Outpatient (CLI) | payer MEDICARE, OTHER, BC | LOC: M WHC 08:23 | PROVIDERS: ATTEND Family Medicine | DX: Z12.31 Encounter for screening mammogram for malignant neoplasm of breast (principal) ==

== ENCOUNTER → 2022-05-04 | Outpatient (CLI) | payer MEDICARE, OTHER, BC ==
[2022-05-04 11:11] LABS: BASO % 0.4 % (0.0-1.0); EOS # 0.1 10^3/uL (0.0-0.5); EOS % 2.2 % (0.0-3.0); HEMATOCRIT 40.1 % (36.0-47.0); HEMOGLOBIN 12.3 g/dl (12.0-15.5); LYMPH % 36.4 % (24.0-44.0); MEAN CORPUSCULAR HEMOGLOBIN 29.4 pg (27.0-33.0); MEAN CORPUSCULAR HGB CONC 30.7 g/dl (32.0-36.5); MEAN CORPUSCULAR VOLUME 95.7 fl (80.0-96.0); MONO # 0.4 10^3/uL (0.0-0.8); MONO % 7.8 % (2.0-8.0); NEUTROPHILS # 2.9 10^3/uL (1.5-8.5); PLATELET COUNT, AUTOMATED 228 10^3/uL (150-450); RED BLOOD COUNT 4.19 10^6/uL (4.00-5.40); WHITE BLOOD COUNT 5.4 10^3/uL (4.0-10.0)
[2022-05-04 12:07] LABS: ALBUMIN 3.4 GM/DL (3.2-5.2); ALT/SGPT 31 U/L (12-78); BILIRUBIN,TOTAL 0.4 MG/DL (0.2-1.0); BLOOD UREA NITROGEN 18 MG/DL (7-18); C REACTIVE PROTEIN QUANTITATIV 1.36 MG/DL (0.00-0.30); CALCIUM LEVEL 9.4 MG/DL (8.8-10.2); CARBON DIOXIDE LEVEL 30 MEQ/L (21-32); CHLORIDE LEVEL 105 MEQ/L (98-107); CREATININE FOR GFR 0.86 MG/DL (0.55-1.30); GLOMERULAR FILTRATION RATE > 60.0 (>39); GLUCOSE, FASTING 102 MG/DL (70-100); POTASSIUM SERUM 4.4 MEQ/L (3.5-5.1); RHEUMATOID FACTOR QUANT < 10.0 IU/ML (<15.0); SODIUM LEVEL 139 MEQ/L (136-145); TOTAL PROTEIN 7.4 GM/DL (6.4-8.2); URIC ACID 6.3 MG/DL (2.6-6.0)
[2022-05-04 12:20] LABS: ERYTHROCYTE SEDIMENTATION RATE 43 mm/hr (0-30)
[2022-05-07 00:09] LABS: ANA (HEP2) Negative (.); CYCLIC CITRULLINATED PEPTIDE 9 units (0-19)
== END ==
LOC: M PLALAB 08:12
PROVIDERS: ATTEND Family Medicine
DX: M35.3 Polymyalgia rheumatica (principal); M31.6 Other giant cell arteritis

== ENCOUNTER → 2022-10-14 | Outpatient (REF) | payer MEDICARE, OTHER ==
[2022-10-14 16:40] LABS: BASO # 0.1 10^3/uL (0.0-0.2); BASO % 0.6 % (0.0-1.0); EOS # 0.1 10^3/uL (0.0-0.5); HEMATOCRIT 39.4 % (36.0-47.0); HEMOGLOBIN 12.6 g/dl (12.0-15.5); LYMPH # 2.2 10^3/uL (1.5-5.0); MEAN CORPUSCULAR HEMOGLOBIN 29.5 pg (27.0-33.0); MEAN CORPUSCULAR VOLUME 92.3 fl (80.0-96.0); MONO # 0.8 10^3/uL (0.0-0.8); MONO % 9.7 % (2.0-8.0); NEUTROPHILS % 61.5 % (36.0-66.0); PLATELET COUNT, AUTOMATED 260 10^3/uL (150-450); RED BLOOD COUNT 4.27 10^6/uL (4.00-5.40); WHITE BLOOD COUNT 8.1 10^3/uL (4.0-10.0)
[2022-10-14 16:45] LABS: ALBUMIN 3.7 G/DL (3.2-5.2); ALKALINE PHOSPHATASE 63 U/L (46-116); ALT/SGPT 32 U/L (7.0-40); AST/SGOT 27 U/L (<34); BILIRUBIN,TOTAL 0.6 MG/DL (0.3-1.2); BLOOD UREA NITROGEN 20 MG/DL (9-23); CALCIUM LEVEL 9.5 MG/DL (8.3-10.6); CARBON DIOXIDE LEVEL 28 MMOL/L (20-31); CHLORIDE LEVEL 102 MMOL/L (98-107); CREATININE FOR GFR 0.78 MG/DL (0.55-1.30); GLOMERULAR FILTRATION RATE > 60.0 (>39); GLUCOSE, FASTING 75 MG/DL (74-106); POTASSIUM SERUM 5.3 MMOL/L (3.5-5.1); SODIUM LEVEL 137 MMOL/L (136-145); TOTAL PROTEIN 7.1 G/DL (5.7-8.2)
[2022-10-14 17:02] LABS: ERYTHROCYTE SEDIMENTATION RATE 80 mm/hr (0-30)
== END ==
LOC: M SFHCRHEU 14:09
PROVIDERS: ATTEND Internal Medicine Rheumatology
DX: M31.5 Giant cell arteritis with polymyalgia rheumatica (principal); M15.9 Polyosteoarthritis, unspecified; M35.00 Sjogren syndrome, unspecified

== ENCOUNTER → 2023-01-27 | Outpatient (REF) | payer MEDICARE, OTHER ==
[2023-01-27 14:09] LABS: BASO % 0.5 % (0.0-1.0); EOS # 0.1 10^3/uL (0.0-0.5); EOS % 1.8 % (0.0-3.0); HEMOGLOBIN 12.3 g/dl (12.0-15.5); LYMPH # 1.7 10^3/uL (1.5-5.0); LYMPH % 29.9 % (24.0-44.0); MEAN CORPUSCULAR HEMOGLOBIN 29.6 pg (27.0-33.0); MEAN CORPUSCULAR HGB CONC 31.5 g/dl (32.0-36.5); MONO # 0.4 10^3/uL (0.0-0.8); MONO % 7.4 % (2.0-8.0); NEUTROPHILS # 3.4 10^3/uL (1.5-8.5); PLATELET COUNT, AUTOMATED 240 10^3/uL (150-450); RED BLOOD COUNT 4.15 10^6/uL (4.00-5.40); WHITE BLOOD COUNT 5.7 10^3/uL (4.0-10.0)
[2023-01-27 14:16] LABS: ERYTHROCYTE SEDIMENTATION RATE 97 mm/hr (0-30)
[2023-01-27 14:22] LABS: ALBUMIN 3.4 G/DL (3.2-5.2); ALKALINE PHOSPHATASE 64 U/L (46-116); ALT/SGPT 33 U/L (7.0-40); AST/SGOT 17 U/L (<34); BILIRUBIN,TOTAL 0.5 MG/DL (0.3-1.2); BLOOD UREA NITROGEN 17 MG/DL (9-23); CARBON DIOXIDE LEVEL 28 MMOL/L (20-31); CHLORIDE LEVEL 102 MMOL/L (98-107); CREATININE FOR GFR 0.79 MG/DL (0.55-1.30); GLOMERULAR FILTRATION RATE > 60.0 (>39); GLUCOSE, FASTING 96 MG/DL (74-106); POTASSIUM SERUM 4.8 MMOL/L (3.5-5.1); SODIUM LEVEL 138 MMOL/L (136-145); TOTAL PROTEIN 6.9 G/DL (5.7-8.2)
[2023-01-27 14:40] LABS: IMMUNOGLOBULIN A 364.1 MG/DL (40-350)
[2023-01-27 14:41] LABS: IMMUNOGLOBULIN G 1062 MG/DL (650-1600); IMMUNOGLOBULIN M 44.8 MG/DL (50-300)
== END ==
LOC: M SFHCRHEU 10:01
PROVIDERS: ATTEND Internal Medicine Rheumatology
DX: M31.5 Giant cell arteritis with polymyalgia rheumatica (principal); M15.9 Polyosteoarthritis, unspecified; M35.00 Sjogren syndrome, unspecified

== ENCOUNTER → 2023-03-01 | Outpatient (CLI) | payer MEDICARE, OTHER | LOC: M WHC 08:03 | PROVIDERS: ATTEND Advanced Practice Midwife | DX: Z12.31 Encounter for screening mammogram for malignant neoplasm of breast (principal) ==

== ENCOUNTER → 2023-04-05 | Outpatient (CLI) | payer MEDICARE, OTHER ==
[2023-04-05 13:42] LABS: BLOOD UREA NITROGEN 15 MG/DL (9-23); CALCIUM LEVEL 9.2 MG/DL (8.3-10.6); CARBON DIOXIDE LEVEL 29 MMOL/L (20-31); CHLORIDE LEVEL 103 MMOL/L (98-107); GLOMERULAR FILTRATION RATE > 60.0 (>39); GLUCOSE, FASTING 92 MG/DL (74-106); POTASSIUM SERUM 4.3 MMOL/L (3.5-5.1); SODIUM LEVEL 140 MMOL/L (136-145)
== END ==
LOC: M PLALAB 09:55
PROVIDERS: ATTEND Internal Medicine Rheumatology
DX: M35.3 Polymyalgia rheumatica (principal); R70.0 Elevated erythrocyte sedimentation rate

== ENCOUNTER → 2023-04-20 | Outpatient (CLI) | payer MEDICARE, OTHER | LOC: M PLAIMG 07:51 | PROVIDERS: ATTEND Internal Medicine Rheumatology | DX: M31.5 Giant cell arteritis with polymyalgia rheumatica (principal); R70.0 Elevated erythrocyte sedimentation rate; M35.00 Sjogren syndrome, unspecified; M15.9 Polyosteoarthritis, unspecified ==

== ENCOUNTER → 2023-11-04 | Outpatient (CLI) | payer MEDICARE, OTHER ==
[2023-11-04 16:53] LABS: BASO % 0.4 % (0.0-1.0); EOS # 0.1 10^3/uL (0.0-0.5); EOS % 1.6 % (0.0-3.0); HEMOGLOBIN 12.7 g/dl (12.0-15.5); LYMPH # 2.1 10^3/uL (1.5-5.0); LYMPH % 25.6 % (24.0-44.0); MEAN CORPUSCULAR HEMOGLOBIN 29.6 pg (27.0-33.0); MEAN CORPUSCULAR HGB CONC 31.8 g/dl (32.0-36.5); MEAN CORPUSCULAR VOLUME 93.2 fl (80.0-96.0); MONO # 0.9 10^3/uL (0.0-0.8); MONO % 10.6 % (2.0-8.0); NEUTROPHILS % 61.6 % (36.0-66.0); PLATELET COUNT, AUTOMATED 268 10^3/uL (150-450); RED BLOOD COUNT 4.29 10^6/uL (4.00-5.40); WHITE BLOOD COUNT 8.2 10^3/uL (4.0-10.0)
[2023-11-04 17:09] LABS: LIPASE 41 U/L (12-53)
[2023-11-04 17:11] LABS: AMYLASE 57 U/L (30-118)
[2023-11-04 17:12] LABS: ALBUMIN 3.8 G/DL (3.2-5.2); ALKALINE PHOSPHATASE 59 U/L (46-116); ALT/SGPT 22 U/L (7.0-40); AST/SGOT 19 U/L (<34); BILIRUBIN,TOTAL 0.8 MG/DL (0.3-1.2); BLOOD UREA NITROGEN 15 MG/DL (9-23); CARBON DIOXIDE LEVEL 28 MMOL/L (20-31); CHLORIDE LEVEL 103 MMOL/L (98-107); CREATININE FOR GFR 0.69 MG/DL (0.55-1.30); GLOMERULAR FILTRATION RATE > 60.0 (>32); GLUCOSE, FASTING 86 MG/DL (74-106); POTASSIUM SERUM 4.5 MMOL/L (3.5-5.1); SODIUM LEVEL 138 MMOL/L (136-145)
== END ==
LOC: M WUC 14:01
PROVIDERS: ATTEND Nurse Practitioner Family
DX: R10.11 Right upper quadrant pain (principal); K59.00 Constipation, unspecified

== ENCOUNTER → 2023-11-09 | Outpatient (CLI) | payer MEDICARE, OTHER ==
[2023-11-09 10:33] LABS: BASO % 0.7 % (0.0-1.0); EOS # 0.1 10^3/uL (0.0-0.5); EOS % 1.8 % (0.0-3.0); HEMATOCRIT 40.6 % (36.0-47.0); HEMOGLOBIN 12.8 g/dl (12.0-15.5); LYMPH # 2.1 10^3/uL (1.5-5.0); LYMPH % 37.1 % (24.0-44.0); MEAN CORPUSCULAR HEMOGLOBIN 28.9 pg (27.0-33.0); MEAN CORPUSCULAR HGB CONC 31.5 g/dl (32.0-36.5); MEAN CORPUSCULAR VOLUME 91.6 fl (80.0-96.0); MONO # 0.5 10^3/uL (0.0-0.8); MONO % 8.2 % (2.0-8.0); NEUTROPHILS # 2.9 10^3/uL (1.5-8.5); PLATELET COUNT, AUTOMATED 234 10^3/uL (150-450); RED BLOOD COUNT 4.43 10^6/uL (4.00-5.40); WHITE BLOOD COUNT 5.6 10^3/uL (4.0-10.0)
[2023-11-09 10:45] LABS: ERYTHROCYTE SEDIMENTATION RATE 71 mm/hr (0-30)
[2023-11-09 11:05] LABS: ALBUMIN 3.6 G/DL (3.2-5.2); ALKALINE PHOSPHATASE 61 U/L (46-116); ALT/SGPT 22 U/L (7.0-40); AST/SGOT 19 U/L (<34); BILIRUBIN,TOTAL 0.6 MG/DL (0.3-1.2); BLOOD UREA NITROGEN 14 MG/DL (9-23); CALCIUM LEVEL 9.5 MG/DL (8.3-10.6); CARBON DIOXIDE LEVEL 30 MMOL/L (20-31); CHLORIDE LEVEL 106 MMOL/L (98-107); CREATININE FOR GFR 0.72 MG/DL (0.55-1.30); GLOMERULAR FILTRATION RATE > 60.0 (>32); GLUCOSE, FASTING 92 MG/DL (74-106); POTASSIUM SERUM 4.4 MMOL/L (3.5-5.1); SODIUM LEVEL 141 MMOL/L (136-145); TOTAL PROTEIN 7.2 G/DL (5.7-8.2)
== END ==
LOC: M WUC 08:27
PROVIDERS: ATTEND Internal Medicine Rheumatology
DX: M31.5 Giant cell arteritis with polymyalgia rheumatica (principal); M15.9 Polyosteoarthritis, unspecified; M35.00 Sjogren syndrome, unspecified

== ENCOUNTER → 2023-11-09 | Outpatient (CLI) | payer MEDICARE, OTHER ==
[2023-11-09 10:33] LABS: BASO % 0.7 % (0.0-1.0); EOS # 0.1 10^3/uL (0.0-0.5); EOS % 1.8 % (0.0-3.0); HEMATOCRIT 40.7 % (36.0-47.0); HEMOGLOBIN 12.8 g/dl (12.0-15.5); MEAN CORPUSCULAR HEMOGLOBIN 29.5 pg (27.0-33.0); MEAN CORPUSCULAR HGB CONC 31.4 g/dl (32.0-36.5); MEAN CORPUSCULAR VOLUME 93.8 fl (80.0-96.0); MONO # 0.5 10^3/uL (0.0-0.8); NEUTROPHILS # 2.9 10^3/uL (1.5-8.5); NEUTROPHILS % 52.3 % (36.0-66.0); PLATELET COUNT, AUTOMATED 229 10^3/uL (150-450); RED BLOOD COUNT 4.34 10^6/uL (4.00-5.40); WHITE BLOOD COUNT 5.6 10^3/uL (4.0-10.0)
[2023-11-09 10:44] LABS: ERYTHROCYTE SEDIMENTATION RATE 75 mm/hr (0-30)
[2023-11-09 11:05] LABS: ALBUMIN 3.6 G/DL (3.2-5.2); ALKALINE PHOSPHATASE 59 U/L (46-116); ALT/SGPT 22 U/L (7.0-40); AST/SGOT 18 U/L (<34); BILIRUBIN,TOTAL 0.6 MG/DL (0.3-1.2); BLOOD UREA NITROGEN 15 MG/DL (9-23); CALCIUM LEVEL 9.3 MG/DL (8.3-10.6); CARBON DIOXIDE LEVEL 30 MMOL/L (20-31); CHLORIDE LEVEL 103 MMOL/L (98-107); CHOLESTEROL LEVEL 208 MG/DL (<200); CHOLESTEROL RISK RATIO 6.54 (<5); CREATININE FOR GFR 0.72 MG/DL (0.55-1.30); GLOMERULAR FILTRATION RATE > 60.0 (>32); GLUCOSE, FASTING 91 MG/DL (74-106); HDL CHOLESTEROL 31.8 MG/DL (>40); LDL CHOLESTEROL 122.6 MG/DL (<100); NON-HDL-C 176.2 MG/DL; POTASSIUM SERUM 4.3 MMOL/L (3.5-5.1); SODIUM LEVEL 139 MMOL/L (136-145); TOTAL PROTEIN 7.1 G/DL (5.7-8.2); TRIGLYCERIDES LEVEL 268 MG/DL (<150)
== END ==
LOC: M WUC 08:29
PROVIDERS: ATTEND Family Medicine
DX: E78.5 Hyperlipidemia, unspecified (principal); M31.5 Giant cell arteritis with polymyalgia rheumatica; M35.00 Sjogren syndrome, unspecified; M15.9 Polyosteoarthritis, unspecified

== ENCOUNTER → 2024-01-10 | Outpatient (CLI) | payer MEDICARE, OTHER, BC | LOC: M SOG 08:03 | PROVIDERS: ATTEND Physician Assistant | DX: M47.817 Spondylosis without myelopathy or radiculopathy, lumbosacral region (principal); M46.96 Unspecified inflammatory spondylopathy, lumbar region; D16.22 Benign neoplasm of long bones of left lower limb; M54.50 Low back pain, unspecified ==

== ENCOUNTER → 2024-02-10 | Outpatient (CLI) | payer MEDICARE, OTHER ==
[~2024-02-10] MED LIST changes: +CRAN500C11 PO; -CVS500CA5 PO
== END ==
LOC: M PLAIMG 06:36
PROVIDERS: ATTEND Physician Assistant
DX: M54.50 Low back pain, unspecified (principal); D16.20 Benign neoplasm of long bones of unspecified lower limb; M47.816 Spondylosis without myelopathy or radiculopathy, lumbar region

== ENCOUNTER → 2024-03-03 | Outpatient (CLI) | payer MEDICARE, OTHER | LOC: M WHC 10:55 | PROVIDERS: ATTEND Family Medicine | DX: Z12.31 Encounter for screening mammogram for malignant neoplasm of breast (principal) ==

== ENCOUNTER → 2024-05-26 | Outpatient (CLI) | payer MEDICARE, OTHER, BC | LOC: M SOG 07:56 | PROVIDERS: ATTEND Physician Assistant | DX: M75.82 Other shoulder lesions, left shoulder (principal); M19.012 Primary osteoarthritis, left shoulder ==

== ENCOUNTER → 2025-08-07 | Outpatient (REF) | payer MEDICARE, OTHER, BC ==
[~2025-08-07] MED LIST changes: -CRAN500C11 PO; +CVS500CA5 PO; +PRED-1142; -PRED1TABL
== END ==
LOC: M LAB REF 11:43
PROVIDERS: ATTEND Nurse Practitioner Family
DX: R19.7 Diarrhea, unspecified (principal); A04.4 Other intestinal Escherichia coli infections